=== PATIENT | male | born 2000 | race Two or more races ===

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

== ENCOUNTER → 2024-09-27 | Emergency (ER) | payer OTHER ==
[~2024-09-27] VITALS: Ht 167.6 cm; Wt 55.3 kg
[~2024-09-27] MED LIST: ATIVAN0.5 M1 PO; LORazepam 2 MG/ML DISP.SYRIN ONE; LORazepam 2 MG/ML VIAL IM ONE
== END | disposition home or self-care (01) ==
LOC: ER 11:22
DX: R53.81 Other malaise (principal); F41.9 Anxiety disorder, unspecified; Z88.0 Allergy status to penicillin